=== PATIENT | male | born 1965 | race Caucasian/White ===

== ENCOUNTER 2018-03-13 13:45 | Day surgery (SDC) | payer BC ==
[~2018-03-13 13:45] MED LIST: Buffered Lidocaine 0.9% SYRIN* 5 ML/SYR SYRINGE INTRADERM ONE
[2018-03-13] MEDS ORDERED: ceFAZolin 2 GM PREMIX in ORs 2 GM/50 ML BAG IVPB ONE (14:43)
[2018-03-13] MEDS ORDERED: ceFAZolin 1 GM ADVAN(*) 1 GM ADDV.VIAL IVPB ONE (14:43)
[2018-03-13] MEDS ORDERED: Lidocaine 1% INJ* 10 MG/ML 30 ML SDV ONE (15:02)
[2018-03-13] MEDS ORDERED: Bupivacaine 0.5% SDV PF* 30ML VIAL ONE (15:03)
[2018-03-13] MEDS ORDERED: Midazolam* 1 MG/ML 5 ML VIAL (5 MG) ONE ×2 (15:10→15:32)
[2018-03-13] MEDS ORDERED: fentaNYL* 50 MCG/ML 2 ML VIAL (100 MCG VIAL) ONE ×3 (15:25→16:44)
[2018-03-13] MEDS ORDERED: oxyCODONE/Acetamin 5/325 MG* TAB PO PRN (16:00)
[2018-03-13] MEDS ORDERED: HYDROmorphone INJ1* 1 MG/ML SYRINGE IV PRN (16:00)
[2018-03-13] MEDS ORDERED: fentaNYL* 50 MCG/ML 2 ML VIAL (100 MCG VIAL) IV PRN (16:00)
[2018-03-13] MEDS ORDERED: Ondansetron INJ* 2 MG/ML VIAL IV PRN (16:00)
[2018-03-13] MEDS ORDERED: Naloxone* 0.4 MG/ML 1 ML VIAL IV PRN (16:00)
[2018-03-13] MEDS ORDERED: KETAMINE HCL* 50 MG/ML 10 ML VIAL ONE (16:12)
[2018-03-13] MEDS ORDERED: Propofol* 10 MG/ML 20 ML BTL IV PUSH ONE (16:24)
[2018-03-13] MEDS ORDERED: Ondansetron INJ* 2 MG/ML VIAL ONE (17:03)
[2018-03-13] MEDS ORDERED: Ketorolac INJ* 30 MG/ML 1 ML VIAL ONE (17:03)
[2018-03-13] MEDS ORDERED: Dexamethasone IV* 4 MG/ML 1 ML (4 MG) ONE (17:04)
--- NOTE | 2018-03-13 17:54 | OP ---
Operative Report - Blank - Operative Report Date of Operation: 03/13/18 Note: Brief Operative Note Preop Dx: Left Inguinal Hernia Postop Dx: same, indirect Procedure: open repair LIH with mesh Anesthesia: local MAC Surgeon: Joseph Straw Hat Machine Operator: MELA Lake Fluids: 2 liters RL EBL: 100 ml Specimen: hernia sac Drains: none Findings: dictated
[2018-03-13 18:11] VITALS: BP 138/79
--- NOTE | 2018-04-11 17:10 | OP ---
CC: [facility]; Primary Care Doctor OPERATIVE REPORT: DATE OF OPERATION: 03/13/18 Please note this is a late entry. DATE OF : 69 SURGEON: John Ruiz MD PEDIATRIC RN: MELA Mcmahon ANESTHESIA: Local MAC anesthesia. PRE-OPERATIVE DIAGNOSIS: Left inguinal hernia. POST-OP DIAGNOSIS: Left inguinal hernia. OPERATIVE PROCEDURE: Open left inguinal hernia repair with mesh. BLOOD LOSS: 100 cc. FLUIDS: 2 L of lactated Ringer's given. SPECIMEN: Hernia sac. DRAINS: None. DESCRIPTION OF PROCEDURE: Mr. Jimenez was identified in the preoperative area. He was marked at the left groin. He was then consented and taken to the operating room and placed in the operating table in supine position. Preoperative antibiotics were given. Sequential devices were placed on bilateral lower extremities. General anesthesia was induced. The patient's left inguinal area was clipped with hair and prepped and draped in a standard surgical fashion. A time-out was performed. Injection of lidocaine for local block along the left groin was made. This incision was made. This was deepened down through Ranjit and Camper's fascia right down to the external oblique aponeurosis. This was incised, a large hernia was identified, extending and attenuating this portion of the exter nal oblique. Once we incised this along the direction of the fibers, flaps were made both cephalad a nd caudad. We isolated the spermatic cord and identified a hernia sac. This was large and extended right down to the scrotum. We pulled this up and dissected it off the spermatic structures. It was complex and at one point, I felt that this was a direct hernia as we dissected this large sac towards the floor of the inguinal canal. There was a large lipoma that turned out to be the more medial structure and indeed the hernia sac ex tended as an indirect hernia once we identified it in this fashion, it was not a pantaloon as also co nsidered. After painstaking dissection down to the internal ring, we did require entering into the sac to get a good understanding of the anatomy. We followed the sac down and did have to reconstitute the sac on ce we had this cleared off the spermatic structures. Portion of the sac was passed as specimen and sent. We did ligate the lipoma, which was not sent. W e then reapproximated the remaining sac and peritoneum with 2-0 Vicryl suture in a pursestring-type fashion. Once this was performed, we could docked this down into the abdomen, it should be noted randy t small bowel was identified in the hernia sac early on in the course and reduced in the appropriate fashion. Next, the floor of the inguinal canal was cleared off. Spermatic structures were isolated and was so me oozing. We did gain hemostasis sometimes with electrocautery, all these with ties. Next, a left-sided Parietex mesh was then opened up. We fashioned this into the floor of the inguina l canal, sutured it at pubic tubercle, also inferiorly along the shelving edge of the inguinal ligame nt off superiorly. The folds of this mesh were wrapped around the spermatic structures, taken care n ot to be too tight. This was then placed underneath the external oblique aponeurosis. Hemostasis wa s achieved with irrigation and then, we approximated the aponeurosis with running 2-0 Vicryl suture. Skin incision was closed in a standard fashion with 3-0 Vicryl followed by 4-0 Monocryl subcuticular suture. Sterile dressing was applied. The patient tolerated the procedure well and was transferred to PACU in stable condition. [id number]/[facility] #: [id number]
== END 2018-03-13 18:28 | disposition home or self-care (01) ==
LOC: OR 13:45
PROVIDERS: ATTEND Surgery
DX: K40.90 Unilateral inguinal hernia, without obstruction or gangrene, not specified as recurrent (principal); Z68.35 Body mass index [BMI] 35.0-35.9, adult
CPT/HCPCS: 88302; J0690; J1100; J1885; J2250; J2405; J2704; J3010